=== PATIENT | female | born 1965 | race Caucasian/White ===

== ENCOUNTER 2019-06-11 13:33 | Inpatient (IN) | payer SELFPAY ==
[2019-06-11] MEDS ORDERED: Sodium Chloride 0.9% 10 ML Syringe FLUSH PRN (13:46)
[2019-06-11] MEDS ORDERED: Lactated Ringers 1,000 ML IV SCH (14:00)
[2019-06-11] MEDS ORDERED: Lactated Ringers 1,000 ML IV ONE ×2 (14:33→15:32)
[2019-06-11] MEDS ORDERED: Insulin Regular, Human 100 Units/ML 3 ML Vial IV ONE (16:04)
--- NOTE | 2019-06-11 16:17 | PCM.HP.2 ---
H&P History of Present Illness - General Date of Service: 06/11/19 - History of Present Illness Initial Comments - Free Text/Narative: 2 weeks ago stopped taking her medications, no specific reason. 1 week ago started feeling more and more fatigue, malaise, thirsty, significant weakness Denies nasal congestion, flue like symptoms, abdominal pain, diarrhea, nausea, vomiting. Earlier this week she did have some nausea, decreased appetite with a couple of episodes of vomiting. Today patient was up around 6AM but went back to bed, woke her up around 11AM and she was significantly lethargic, she eventually made it to the clinic where she was sent here - Related Data Allergies/Adverse Reactions: Allergies Allergy/AdvReac Type Severity Reaction Status Date / Time No Known Allergies Allergy Verified 06/11/19 13:47 Home Medications: Home Meds Aspirin 81 mg PO DAILY 06/11/19 [History] Cholecalciferol (Vitamin D3) [Vitamin D3] 1,000 unit PO DAILY 06/11/19 [History] Cranberry Fruit Concentrate [Cranberry] 450 mg PO DAILY 06/11/19 [History] Liraglutide [Victoza 3-Jesus] 0 mg SQ DAILY 06/11/19 [History] Lisinopril 30 mg PO DAILY 06/11/19 [History] Phenazopyridine HCl [Azo Urinary Pain Relief] 97.5 mg PO DAILY PRN 06/11/19 [ History] Vit C/E/Zn/Coppr/Lutein/Zeaxan [Preservision Areds 2 Softgel] 1 each PO DAILY [History] atorvaSTATin [Lipitor] 10 mg PO DAILY 06/11/19 [History] metFORMIN [Glucophage] 1,000 mg PO BIDMEALS 06/11/19 [History] Past Medical History HEENT History: Reports: None Cardiovascular History: Reports: High Cholesterol, Hypertension Respiratory History: Reports: None Gastrointestinal History: Reports: None 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 Musculoskeletal History: Reports: None Neurological History: Reports: None Psychiatric History: Reports: None Endocrine/Metabolic History: Reports: Diabetes, Type II, Obesity/BMI 30+ Hematologic History: Reports: None Immunologic History: Reports: None Oncologic (Cancer) History: Reports: None Dermatologic History: Reports: None - Infectious Disease History Infectious Disease History: Reports: None - Past Surgical History Head Surgeries/Procedures: Reports: None Female Surgical History: Reports: Hysterectomy Social & Family History - Tobacco Use Smoking Status *Q: Never Smoker - Caffeine Use Caffeine Use: Reports: Soda - Recreational Drug Use Recreational Drug Use: No H&P Review of Systems - Review of Systems: Review Of Systems: See Below General: Reports: Weakness, Fatigue. Denies: Fever, Chills, Malaise, Night Sweats, Diaphoresis, Decreased Appetite HEENT: Denies: Dysphasia, Ear Pain, Eye Pain, Headaches, Post Nasal Drip, Sinus Congestion, Sore Throat Pulmonary: Denies: Shortness of Breath, Wheezing, Pleuritic Chest Pain, Cough, Sputum, Hemoptysis Cardiovascular: Reports: Dyspnea on Exertion. Denies: Chest Pain, Palpitations , Orthopnea, PND, Edema, Lightheadedness, Syncope, Claudication Gastrointestinal: Reports: Nausea. Denies: Abdominal Pain, Anorexia, Black Stool, Bloody Stool, Constipation, Diarrhea, Decreased Appetite, Difficulty Swallowing, Distension, Flatus, Hematemesis, Hematochezia Genitourinary: Reports: Frequency, Urgency, Incontinence. Denies: Dysuria, Burning, Pain, Hematuria, Retention Skin: Denies: Cyanosis, Jaundice, Mottled, Pallor, Rash Psychiatric: Reports: Confusion. Denies: Depression, Mood Lability, Anxiety, Agitation Neurological: Reports: Confusion. Denies: Dizziness, Headache, Numbness, Paresthesia Exam - Exam Exam: See Below - Vital Signs Vital Signs: Last Vital Signs Temp 36.1 C 06/11/19 13:44 Pulse 96 06/11/19 13:44 Resp 24 H 06/11/19 13:44 BP 143/115 H 06/11/19 13:44 Pulse Ox 98 06/11/19 13:44 Weight: 172.365 kg - Exam General: Mild Distress, Lethargic HEENT: Conjunctiva Clear, EACs Clear, Other (Oral mucosa is dry withou lesions) Neck: Supple Lungs: Clear to Auscultation, Normal Respiratory Effort Cardiovascular: Regular Rate, Regular Rhythm. No: Diastolic Murmur, Rubs, Gallop/S3, Gallop/S4 GI/Abdominal Exam: Normal Bowel Sounds, Soft. No: Guarding, Rebound, Tender Back Exam: Normal Inspection. No: CVA Tenderness (L), CVA Tenderness (R) Extremities: Normal Inspection, No Pedal Edema - Patient Data Lab Results Last 24 hrs: Laboratory Results - last 24 hr 06/11/19 06/11/19 06/11/19 Range/Units 13:55 13:55 13:55 WBC 16.95 H (3.98-10.04) K/mm3 RBC 5.85 H (3.98-5.22) M/mm3 Hgb 16.7 H (11.2-15.7) gm/dl Hct 48.7 H (34.1-44.9) % MCV 83.2 D (79.4-94.8) fl MCH 28.5 (25.6-32.2) pg MCHC 34.3 (32.2-35.5) g/dl RDW Std Deviation 40.7 (36.4-46.3) fL Plt Count 292 (182-369) K/mm3 MPV 10.2 (9.4-12.3) fl Neut % (Auto) 83.3 H (34.0-71.1) % Lymph % (Auto) 4.7 L (19.3-51.7) % [place] % (Auto) 9.7 (4.7-12.5) % Eos % (Auto) 0 L (0.7-5.8) Baso % (Auto) 0.4 (0.1-1.2) % Neut # (Auto) 14.12 H (1.56-6.13) K/mm3 Lymph # (Auto) 0.80 L (1.18-3.74) K/mm3 [place] # (Auto) 1.65 H (0.24-0.36) K/mm3 Eos # (Auto) 0.00 L (0.04-0.36) K/mm3 Baso # (Auto) 0.06 (0.01-0.08) K/mm3 Manual Slide Review Abnormal smear VBG pH (7.30-7.40) Sodium 122 L D (136-145) mEq/L Potassium 4.9 (3.5-5.1) mEq/L Chloride 86 L D (98-107) mEq/L Carbon Dioxide 13 L D (21-32) mEq/L Anion Gap 27.9 H (5-15) BUN 30 H (7-18) mg/dL Creatinine 1.2 H (0.55-1.02) mg/dL Est Cr Clr Drug Dosing 50.75 mL/min Estimated GFR (MDRD) 47 (>60) mL/min BUN/Creatinine Ratio 25.0 H (14-18) Glucose 730 H* (74-106) mg/dL Serum Osmolality 330 H (280-300) mosm/kg Lactic Acid (0.4-2.0) mmol/L Calcium 8.8 (8.5-10.1) mg/dL Total Bilirubin 0.7 (0.2-1.0) mg/dL AST 5 L (15-37) U/L ALT 13 L (14-59) U/L Alkaline Phosphatase 167 H (46-116) U/L Total Protein 8.3 H (6.4-8.2) g/dl Albumin 3.0 L (3.4-5.0) g/dl Globulin 5.3 gm/dL Albumin/Globulin Ratio 0.6 L (1-2) Ketones 1.24 (0.0-0.3) mM 06/11/19 06/11/19 Range/Units 14:47 15:28 WBC (3.98-10.04) K/mm3 RBC (3.98-5.22) M/mm3 Hgb (11.2-15.7) gm/dl Hct (34.1-44.9) % MCV (79.4-94.8) fl MCH (25.6-32.2) pg MCHC (32.2-35.5) g/dl RDW Std Deviation (36.4-46.3) fL Plt Count (182-369) K/mm3 MPV (9.4-12.3) fl Neut % (Auto) (34.0-71.1) % Lymph % (Auto) (19.3-51.7) % [place] % (Auto) (4.7-12.5) % Eos % (Auto) (0.7-5.8) Baso % (Auto) (0.1-1.2) % Neut # (Auto) (1.56-6.13) K/mm3 Lymph # (Auto) (1.18-3.74) K/mm3 [place] # (Auto) (0.24-0.36) K/mm3 Eos # (Auto) (0.04-0.36) K/mm3 Baso # (Auto) (0.01-0.08) K/mm3 Manual Slide Review VBG pH 7.26 L (7.30-7.40) Sodium (136-145) mEq/L Potassium (3.5-5.1) mEq/L Chloride (98-107) mEq/L Carbon Dioxide (21-32) mEq/L Anion Gap (5-15) BUN (7-18) mg/dL Creatinine (0.55-1.02) mg/dL Est Cr Clr Drug Dosing mL/min Estimated GFR (MDRD) (>60) mL/min BUN/Creatinine Ratio (14-18) Glucose (74-106) mg/dL Serum Osmolality (280-300) mosm/kg Lactic Acid 2.2 H (0.4-2.0) mmol/L Calcium (8.5-10.1) mg/dL Total Bilirubin (0.2-1.0) mg/dL AST (15-37) U/L ALT (14-59) U/L Alkaline Phosphatase (46-116) U/L Total Protein (6.4-8.2) g/dl Albumin (3.4-5.0) g/dl Globulin gm/dL Albumin/Globulin Ratio (1-2) Ketones (0.0-0.3) mM Result Diagrams: 06/11/19 13:55 06/11/19 20:30 - Problem List (1) Hyperosmolar non-ketotic state in patient with type 2 diabetes mellitus SNOMED Code(s): 295262491, 339992433 ICD Code: E11.00 - TYPE 2 DIAB W HYPROSM W/O NONKET HYPRGLY-HYPROS COMA ( [facility]) Status: Acute Current Visit: Yes (2) Hypochloremia SNOMED Code(s): 86958351 ICD Code: E87.8 - OTH DISORDERS OF ELECTROLYTE AND FLUID BALANCE, NEC Status: Acute Current Visit: Yes (3) Hypoalbuminemia SNOMED Code(s): 544808580 ICD Code: E88.09 - OTH DISORDERS OF PLASMA-PROTEIN METABOLISM, NEC Status: Acute Current Visit: Yes (4) Acute kidney failure SNOMED Code(s): 72035417 ICD Code: N17.9 - ACUTE KIDNEY FAILURE, UNSPECIFIED Status: Acute Current Visit: Yes (5) Lactic acidosis SNOMED Code(s): 71298895 ICD Code: E87.2 - ACIDOSIS Status: Acute Current Visit: Yes (6) Hypomagnesemia SNOMED Code(s): 347672115 ICD Code: E83.42 - HYPOMAGNESEMIA Status: Acute Current Visit: Yes (7) High anion gap metabolic acidosis SNOMED Code(s): 26352922 ICD Code: E87.2 - ACIDOSIS Status: Acute Current Visit: Yes (8) Ketonemia SNOMED Code(s): 030424265 ICD Code: R79.89 - OTHER SPECIFIED ABNORMAL FINDINGS OF BLOOD CHEMISTRY Status: Acute Current Visit: Yes (9) Morbid obesity SNOMED Code(s): 163829185 ICD Code: E66.01 - MORBID (SEVERE) OBESITY DUE TO EXCESS CALORIES Status: Acute Current Visit: Yes (10) Hypophosphatemia SNOMED Code(s): 3755045 ICD Code: E83.39 - OTHER DISORDERS OF PHOSPHORUS METABOLISM Status: Acute Current Visit: Yes (11) Diabetic ketoacidosis SNOMED Code(s): 150662875, 135927097 ICD Code: E11.10 - TYPE 2 DIABETES MELLITUS WITH KETOACIDOSIS WITHOUT COMA Status: Acute Current Visit: Yes Qualifiers: Diabetes mellitus type: type 2 Diabetes mellitus complication detail: without coma Qualified Code(s): E11.10 - Type 2 diabetes mellitus with ketoacidosis without coma (12) Hyponatremia SNOMED Code(s): 91032786 ICD Code: E87.1 - HYPO-OSMOLALITY AND HYPONATREMIA Status: Acute Current Visit: Yes (13) Hypertension SNOMED Code(s): 52734542 ICD Code: I10 - ESSENTIAL (PRIMARY) HYPERTENSION Status: Acute Current Visit: Yes (14) Volume depletion SNOMED Code(s): 78389161 ICD Code: E86.9 - VOLUME DEPLETION, UNSPECIFIED Status: Acute Current Visit: Yes (15) Diabetes mellitus SNOMED Code(s): 06289115 ICD Code: E11.9 - TYPE 2 DIABETES MELLITUS WITHOUT COMPLICATIONS Status: Acute Current Visit: Yes (16) Economic circumstance affecting care SNOMED Code(s): 093455447 ICD Code: Z59.9 - PROBLEM RELATED TO HOUSING AND ECONOMIC CIRCUMSTANCES, UNSP Status: Acute Current Visit: Yes Problem List Initiated/Reviewed/Updated: Yes Assessment/Plan Comment:: Diabetic ketoacidosis Hyperosmolar state Uncontrolled diabetes mellitus, unknown HbA1c Multifactorial anion gap metabolic acidosis Respiratory alkalosis Anion gap 28 on admission Serum osmolarity 330 Lactic acid 2.2 Unknown HbA1c likely precipitated by UTI and missed insulin doses PLAN - BMP + Mg + Pi every 4 hours - Ketones every 8 hours - Lactic acid every 4 hours - Fluid resuscitation with LR - Insulin drip until anion gap is closed - Start D10 once glucose <200 - Accuchecks q1h - Electrolytes replacements as per protocol - HbA1c measurement - 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 - NPO until gap is closed Acute vs acute on chronic kidney injury Multiple metabolic derangements Hypophosphatemia + Hypochloremia + Hyponatremia Unknown baseline GFR GFR on admission 47 PLAN - Continue IV fluids - Monitor urine output - Renally dosed medications - Avoid nephrotoxic meds as much as possible - Repeat chemistry with DKA protocol Urinary tract infection Increased frequency + incontinence + suprapubic tenderness Positive UA on admission PLAN - Urine culture - Ciprofloxacin Hypertension BP on admission 143/115 Unknown home Meds PLAN - Reconcile Meds once list available - Hydralazine 10mg IV for BP >180/100 Hypoalbuminemia - 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 Morbid obesity, BMI 59 Discuss importance of diet and lifestyle modifications Dietary consult PROPHYLAXIS DVT- Lovenox GI-not indicated CODE STATUS: FULL CODE DISPOSITION: Patient will be admitted to the ICU for DKA protocol,PT and OT evaluation, case management and social worker health services consult in place for discharge planning. - Mortality Measure Prognosis:: Good
[2019-06-11] MEDS ORDERED: Sodium Bicarbonate 8.4% 50 MEQ/50 ML Syringe IVPUSH PRN (16:25)
[2019-06-11] MEDS ORDERED: Magnesium Sulfate/Water 4 GM in Premix Bag 1 BAG IV PRN (16:25)
[2019-06-11] MEDS ORDERED: Potassium Phosphates 15 MMOLE in Sodium Chloride 0.9% 100 ML IV PRN (16:25)
[2019-06-11] MEDS ORDERED: Sodium Chloride 0.9% 1,000 ML IV SCH (16:30)
[2019-06-11] MEDS ORDERED: Dextrose 10% in Water 1,000 ML IV SCH (16:30)
--- NOTE | 2019-06-11 16:36 | EDM.PDOC ---
ED HPI GENERAL MEDICAL PROBLEM - General Chief Complaint: Diabetic Complaint Stated Complaint: DIABETIC COMPLAINT Time Seen by Provider: 06/11/19 13:42 Source of Information: Reports: Patient, Family, Provider History Limitations: Reports: No Limitations - History of Present Illness INITIAL COMMENTS - FREE TEXT/NARRATIVE: The patient presents by private vehicle from the clinic. Cynthia Hahn sent her up for possible DKA. Two weeks ago the patient stopped taking her diabetic medications. She was on oral meds. She wanted to try to do this on her own. She has been weak, thirsty and urinating a lot. She has no fever, chills, cough , congestion, runny nose, abdominal pain, or vomiting. She did have some nausea. She has never been in DKA before. Bedside glucose was >400. Onset: Gradual Duration: Day(s): Severity: Moderate Improves with: Reports: None Worsens with: Reports: None Associated Symptoms: Reports: Nausea/Vomiting. Denies: Chest Pain, Cough, Fever /Chills, Headaches, Shortness of Breath - Related Data Allergies Allergy/AdvReac Type Severity Reaction Status Date / Time No Known Allergies Allergy Verified 06/11/19 13:47 Home Meds: Home Meds Aspirin 81 mg PO DAILY 06/11/19 [History] Cholecalciferol (Vitamin D3) [Vitamin D3] 1,000 unit PO DAILY 06/11/19 [History] Cranberry Fruit Concentrate [Cranberry] 450 mg PO DAILY 06/11/19 [History] Liraglutide [Victoza 3-Jesus] 0 mg SQ DAILY 06/11/19 [History] Lisinopril 30 mg PO DAILY 06/11/19 [History] Phenazopyridine HCl [Azo Urinary Pain Relief] 97.5 mg PO DAILY PRN 06/11/19 [ History] Vit C/E/Zn/Coppr/Lutein/Zeaxan [Preservision Areds 2 Softgel] 1 each PO DAILY [History] atorvaSTATin [Lipitor] 10 mg PO DAILY 06/11/19 [History] metFORMIN [Glucophage] 1,000 mg PO BIDMEALS 06/11/19 [History] Past Medical History HEENT History: Reports: None Cardiovascular History: Reports: High Cholesterol, Hypertension Respiratory History: Reports: None Gastrointestinal History: Reports: None 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 Musculoskeletal History: Reports: None Neurological History: Reports: None Psychiatric History: Reports: None Endocrine/Metabolic History: Reports: Diabetes, Type II, Obesity/BMI 30+ Hematologic History: Reports: None Immunologic History: Reports: None Oncologic (Cancer) History: Reports: None Dermatologic History: Reports: None - Infectious Disease History Infectious Disease History: Reports: None - Past Surgical History Head Surgeries/Procedures: Reports: None Female Surgical History: Reports: Hysterectomy Social & Family History - Tobacco Use Smoking Status *Q: Never Smoker - Caffeine Use Caffeine Use: Reports: Soda - Recreational Drug Use Recreational Drug Use: No ED ROS GENERAL - Review of Systems Review Of Systems: See Below Constitutional: Reports: Malaise, Weakness, Fatigue HEENT: Reports: No Symptoms Respiratory: Reports: No Symptoms Cardiovascular: Reports: No Symptoms Endocrine: Reports: Fatigue, Polydypsia GI/Abdominal: Reports: Nausea. Denies: Abdominal Pain, Vomiting : Reports: No Symptoms Musculoskeletal: Reports: No Symptoms ED EXAM GENERAL NO PERIP PULSE - Physical Exam Exam: See Below Exam Limited By: No Limitations General Appearance: Alert, No Apparent Distress Ears: Normal External Exam Nose: Normal Inspection Throat/Mouth: Other (Dry mucus membraines) Head: Atraumatic, Normocephalic Neck: Normal Inspection, Supple, Non-Tender Respiratory/Chest: No Respiratory Distress, Lungs Clear, Normal Breath Sounds Cardiovascular: Normal Peripheral Pulses, Regular Rate, Rhythm, No Edema GI/Abdominal: Soft, Non-Tender, No Organomegaly, No Mass Back Exam: Normal Inspection Extremities: Normal Inspection Course - Vital Signs Last Recorded V/S: Last Vital Signs Temp 96.9 F 06/11/19 13:44 Pulse 96 06/11/19 13:44 Resp 24 H 06/11/19 13:44 BP 143/115 H 06/11/19 13:44 Pulse Ox 98 06/11/19 13:44 - Orders/Labs/Meds Orders: Active Orders 24 hr Category Date Time Status Cardiac Monitoring [RC] . DIRECTED Care 06/11/19 13:46 Active Peripheral IV Care [RC] . DIRECTED Care 06/11/19 13:46 Active Insulin Regular, Human [HumuLIN R] 100 unit Med 06/11/19 16:15 Active Sodium Chloride 0.9% [Normal Saline] 99 ml IV TITRATE Lactated Ringers [Ringers, Lactated] 1,000 ml Med 06/11/19 14:00 Active IV .BOLUS Lactated Ringers [Ringers, Lactated] 1,000 ml Med 06/11/19 15:32 Active IV .BOLUS Sodium Chloride 0.9% [Saline Flush] Med 06/11/19 13:46 Active 10 ml FLUSH ASDIRECTED PRN Peripheral IV Insertion Adult [OM.PC] Stat Oth 06/11/19 13:46 Ordered Medication Orders Lactated Ringer's (Ringers, Lactated) 1,000 mls @ 500 mls/hr IV .BOLUS MICHELE Last Admin: 06/11/19 13:59 Dose: 500 mls/hr Lactated Ringer's (Ringers, Lactated) 1,000 mls @ 1,000 mls/hr IV .BOLUS ONE Stop: 06/11/19 16:31 Last Admin: 06/11/19 15:41 Dose: 1,000 mls/hr Insulin Human Regular 100 unit (/ Sodium Chloride) 100 mls @ 17.23 mls/hr IV TITRATE MICHELE; Protocol Sodium Chloride (Saline Flush) 10 ml FLUSH ASDIRECTED PRN PRN Reason: Keep Vein Open Last Admin: 06/11/19 13:59 Dose: 10 ml Labs: Laboratory Tests 06/11/19 06/11/19 06/11/19 Range/Units 13:55 13:55 13:55 WBC 16.95 H (3.98-10.04) K/mm3 RBC 5.85 H (3.98-5.22) M/mm3 Hgb 16.7 H (11.2-15.7) gm/dl Hct 48.7 H (34.1-44.9) % MCV 83.2 D (79.4-94.8) fl MCH 28.5 (25.6-32.2) pg MCHC 34.3 (32.2-35.5) g/dl RDW Std Deviation 40.7 (36.4-46.3) fL Plt Count 292 (182-369) K/mm3 MPV 10.2 (9.4-12.3) fl Neut % (Auto) 83.3 H (34.0-71.1) % Lymph % (Auto) 4.7 L (19.3-51.7) % [place] % (Auto) 9.7 (4.7-12.5) % Eos % (Auto) 0 L (0.7-5.8) Baso % (Auto) 0.4 (0.1-1.2) % Neut # (Auto) 14.12 H (1.56-6.13) K/mm3 Lymph # (Auto) 0.80 L (1.18-3.74) K/mm3 [place] # (Auto) 1.65 H (0.24-0.36) K/mm3 Eos # (Auto) 0.00 L (0.04-0.36) K/mm3 Baso # (Auto) 0.06 (0.01-0.08) K/mm3 Manual Slide Review Abnormal smear VBG pH (7.30-7.40) Sodium 122 L D (136-145) mEq/L Potassium 4.9 (3.5-5.1) mEq/L Chloride 86 L D (98-107) mEq/L Carbon Dioxide 13 L D (21-32) mEq/L Anion Gap 27.9 H (5-15) BUN 30 H (7-18) mg/dL Creatinine 1.2 H (0.55-1.02) mg/dL Est Cr Clr Drug Dosing 50.75 mL/min Estimated GFR (MDRD) 47 (>60) mL/min BUN/Creatinine Ratio 25.0 H (14-18) Glucose 730 H* (74-106) mg/dL Serum Osmolality 330 H (280-300) mosm/kg Lactic Acid (0.4-2.0) mmol/L Calcium 8.8 (8.5-10.1) mg/dL Total Bilirubin 0.7 (0.2-1.0) mg/dL AST 5 L (15-37) U/L ALT 13 L (14-59) U/L Alkaline Phosphatase 167 H (46-116) U/L Total Protein 8.3 H (6.4-8.2) g/dl Albumin 3.0 L (3.4-5.0) g/dl Globulin 5.3 gm/dL Albumin/Globulin Ratio 0.6 L (1-2) Ketones 1.24 (0.0-0.3) mM 06/11/19 06/11/19 Range/Units 14:47 15:28 WBC (3.98-10.04) K/mm3 RBC (3.98-5.22) M/mm3 Hgb (11.2-15.7) gm/dl Hct (34.1-44.9) % MCV (79.4-94.8) fl MCH (25.6-32.2) pg MCHC (32.2-35.5) g/dl RDW Std Deviation (36.4-46.3) fL Plt Count (182-369) K/mm3 MPV (9.4-12.3) fl Neut % (Auto) (34.0-71.1) % Lymph % (Auto) (19.3-51.7) % [place] % (Auto) (4.7-12.5) % Eos % (Auto) (0.7-5.8) Baso % (Auto) (0.1-1.2) % Neut # (Auto) (1.56-6.13) K/mm3 Lymph # (Auto) (1.18-3.74) K/mm3 [place] # (Auto) (0.24-0.36) K/mm3 Eos # (Auto) (0.04-0.36) K/mm3 Baso # (Auto) (0.01-0.08) K/mm3 Manual Slide Review VBG pH 7.26 L (7.30-7.40) Sodium (136-145) mEq/L Potassium (3.5-5.1) mEq/L Chloride (98-107) mEq/L Carbon Dioxide (21-32) mEq/L Anion Gap (5-15) BUN (7-18) mg/dL Creatinine (0.55-1.02) mg/dL Est Cr Clr Drug Dosing mL/min Estimated GFR (MDRD) (>60) mL/min BUN/Creatinine Ratio (14-18) Glucose (74-106) mg/dL Serum Osmolality (280-300) mosm/kg Lactic Acid 2.2 H (0.4-2.0) mmol/L Calcium (8.5-10.1) mg/dL Total Bilirubin (0.2-1.0) mg/dL AST (15-37) U/L ALT (14-59) U/L Alkaline Phosphatase (46-116) U/L Total Protein (6.4-8.2) g/dl Albumin (3.4-5.0) g/dl Globulin gm/dL Albumin/Globulin Ratio (1-2) Ketones (0.0-0.3) mM Meds: Medications Generic Name Dose Route Start Last Admin Trade Name Ladonna PRN Reason Stop Dose Admin Lactated Ringer's 1,000 mls @ 500 mls/hr 06/11/19 14:00 06/11/19 13:59 Ringers, Lactated IV 500 mls/hr .BOLUS MICHELE Administration Lactated Ringer's 1,000 mls @ 1,000 mls/hr 06/11/19 15:32 06/11/19 15:41 Ringers, Lactated IV 06/11/19 16:31 1,000 mls/hr .BOLUS ONE Administration Insulin Human Regular 100 unit 100 mls @ 17.23 mls/hr 06/11/19 16:15 / Sodium Chloride IV TITRATE MICHELE Protocol 0.1 UNITS/KG/HR Sodium Chloride 10 ml 06/11/19 13:46 06/11/19 13:59 Saline Flush FLUSH 10 ml ASDIRECTED PRN Administration Keep Vein Open Discontinued Medications Generic Name Dose Route Start Last Admin Trade Name Ladonna PRN Reason Stop Dose Admin Lactated Ringer's 1,000 mls @ 1,000 mls/hr 06/11/19 14:33 06/11/19 15:10 Ringers, Lactated IV 06/11/19 15:32 1,000 mls/hr .BOLUS ONE Administration Insulin Human Regular 10 unit 06/11/19 16:04 Humulin R IV 06/11/19 16:05 ONETIME ONE - Re-Assessments/Exams Free Text/Narrative Re-Assessment/Exam: 06/11/19 16:36 I ordered an IV LR bolus and labs. 06/11/19 16:38 Her WBC is elevated at 16.95. Her Hgb is elevated at 16.7. Her pH is low at 7.26. Her Na is low at 122. Her K is 4.9. Her anion gap is elevated at 27.9. Her creatinine was elevated at 1.2. Her glucose is 730. Her serum osmolality is 330. Her lactic acid is 2.2. Her alk phos is elevated at 167. Her ketones are elevated at 1.24. It appears she is in DKA. I ordered another 2L of LR. I have also ordered an insulin bolus of 10 units and a drip at 0.1units per hour. I feel she needs to be admitted. I called Dr Alegria and she agreed to the admission. Departure - Departure Time of Disposition: 16:45 Disposition: Admitted As Inpatient 67 Condition: Serious Clinical Impression: Hyponatremia, Dehydration Diabetic ketoacidosis Qualifiers: Diabetes mellitus type: type 2 Diabetes mellitus complication detail: without coma Qualified Code(s): E11.10 - Type 2 diabetes mellitus with ketoacidosis without coma - Discharge Information Referrals: PCP,None [Primary Care Provider] - - My Orders Last 24 Hours: My Active Orders 06/11/19 13:46 Cardiac Monitoring [RC] . DIRECTED Peripheral IV Care [RC] . DIRECTED Sodium Chloride 0.9% [Saline Flush] 10 ml FLUSH ASDIRECTED PRN Peripheral IV Insertion Adult [OM.PC] Stat 06/11/19 14:00 Lactated Ringers [Ringers, Lactated] 1,000 ml IV .BOLUS 06/11/19 15:32 Lactated Ringers [Ringers, Lactated] 1,000 ml IV .BOLUS 06/11/19 16:15 Insulin Regular, Human [HumuLIN R] 100 unit Sodium Chloride 0.9% [Normal Saline] 99 ml IV TITRATE - Assessment/Plan Last 24 Hours: My Active Orders 06/11/19 13:46 Cardiac Monitoring [RC] . DIRECTED Peripheral IV Care [RC] . DIRECTED Sodium Chloride 0.9% [Saline Flush] 10 ml FLUSH ASDIRECTED PRN Peripheral IV Insertion Adult [OM.PC] Stat 06/11/19 14:00 Lactated Ringers [Ringers, Lactated] 1,000 ml IV .BOLUS 06/11/19 15:32 Lactated Ringers [Ringers, Lactated] 1,000 ml IV .BOLUS 06/11/19 16:15 Insulin Regular, Human [HumuLIN R] 100 unit Sodium Chloride 0.9% [Normal Saline] 99 ml IV TITRATE
[2019-06-11] MEDS ORDERED: Dextrose 10% in Water 1,000 ML ONE (17:19)
[2019-06-11 17:44] LABS: HEMOGLOBIN A1C 9.1 % (4.50-6.20)
[2019-06-11] MEDS: Lactated Ringers 1,000 ML IV SCH ×3 (19:19→22:06)
--- NOTE | 2019-06-11 19:24 | CR ---
Chest: Portable view of the chest was obtained. Comparison: No prior chest x-ray. Nodular density is noted within the left upper lung measuring approximately 1.2 cm. Poor inspiratory study is noted. Lungs show no definite acute parenchymal change. Bony structures are grossly intact. Probable left jugular line is noted with tip lying within the right atrium. Impression: 1. Left upper lung nodule. Nonemergent chest CT could be considered to further evaluate. 2. Poor inspiratory effort. 3. Probable jugular line with tip lying within the right atria. 4. No definite acute parenchymal change is seen. Diagnostic code #9
--- NOTE | 2019-06-11 20:57 | CR ---
Chest: Portable view of the chest was obtained. Comparison: Prior chest x-ray performed earlier on the same day (6:55 PM) Slightly better inspiratory study is seen. Nodule remains within the left mid chest. Lungs are clear. Heart size and mediastinum are normal. Left jugular line is noted. Tip appears withdrawn and is difficult to see but appears to be within the superior vena cava. Bony structures are grossly intact. Impression: 1. Nodule persists. Nonemergent chest CT again recommended. 2. Better inspiratory study noted on current exam. 3. Left jugular line appears withdrawn with tip difficult to see but felt to be within the superior vena cava. Diagnostic code #9
[2019-06-12] MEDS: Lactated Ringers 1,000 ML IV SCH ×2 (01:04→05:52)
[2019-06-12] MEDS ORDERED: Potassium Phosphates 15 MMOLE in Sodium Chloride 0.9% 250 ML IV ONE (05:15)
[2019-06-12] MEDS ORDERED: 50% Dextrose in Water 50 ML Syringe IVPUSH ONE (08:18)
[2019-06-12] MEDS ORDERED: 50% Dextrose in Water 50 ML Syringe ONE (08:19)
[2019-06-12] MEDS ORDERED: Aspirin 81 MG Tab.Chew PO ONE (08:24)
[2019-06-12] MEDS ORDERED: Aspirin 81 MG Tab.Chew ONE ×2 (08:24→08:25)
[2019-06-12] MEDS ORDERED: Rosuvastatin 10 MG Tab PO ONE (08:26)
[2019-06-12] MEDS: Enoxaparin 40 MG/0.4 ML Syringe SUBCUT SCH ×2 (08:44→08:46)
[2019-06-12] MEDS ORDERED: Iopamidol 755 Mg/ML 100 ML Bottle IVPUSH ONE (08:47)
[2019-06-12] MEDS ORDERED: Sodium Chloride 0.9% 10 ML Syringe FLUSH PRN (08:47)
[2019-06-12] MEDS ORDERED: Sodium Chloride 0.9% 100 ML IV SCH (09:00)
--- NOTE | 2019-06-12 10:51 | PCM.DCSUM1 ---
Discharge Summary - Hospital Course HPI Initial Comments: This is a 54 year old female with past medical history of diabetes and hypertension 2 weeks ago stopped taking her medications, no specific reason. 1 week ago started feeling more and more fatigue, malaise, thirsty, significant weakness Denies nasal congestion, flue like symptoms, abdominal pain, diarrhea, nausea, vomiting. Earlier this week she did have some nausea, decreased appetite with a couple of episodes of vomiting. Today patient was up around 6AM but went back to bed, woke her up around 11AM and she was significantly lethargic, she eventually made it to the clinic where she was sent here Once in the ED she was found to have an anion gap metabolic acidosis, hyperosmolar state, respiratory alkalosis, acute kidney injury, multiple electrolyte abnormalities, positive UA and hypoalbuminemia. She was admitted to the ICU for insulin infusion and DKA protocol which continued throughout the night. Today at 8:05AM patient was found to have sudden onset weakness of RUE. Glucose at the time was 209, she was given D50 and orange juice, repeat glucose of 253 without improvement of symptoms. Stroke code was called and patient was taken to CT. CTA head reported to have a subacute medial left lobe CVA. Case was discussed with neurologist in [place] and ER MD who accepted transfer. Patient left at 11:00AM via ground ambulance. On insulin drip at 2u and LR at 150ml/hr Diagnosis: Stroke: Yes Modified [place] Scale: Mod.Sev.Disability ;Unable to Walk/Attend Bodily Needs W/ O Assistance Modified [place] Scale Score: 4 - Discharge Data Discharge Date: 06/12/19 Discharge Disposition: DC/Tfer to Acute Hospital 02 Condition: Good - Referral to Home Health Primary Care Physician: PCP None - Discharge Diagnosis/Problem(s) (1) Stroke-like symptoms SNOMED Code(s): 113653365 ICD Code: R29.90 - UNSPECIFIED SYMPTOMS AND SIGNS INVOLVING THE NERVOUS SYSTEM Status: Acute Priority: High Current Visit: Yes (2) Stroke, acute, embolic SNOMED Code(s): 703302098, 423234012 ICD Code: I63.9 - CEREBRAL INFARCTION, UNSPECIFIED Status: Acute Priority : High Current Visit: Yes (3) Hyperosmolar non-ketotic state in patient with type 2 diabetes mellitus SNOMED Code(s): 773560987, 229889767 ICD Code: E11.00 - TYPE 2 DIAB W HYPROSM W/O NONKET HYPRGLY-HYPROS COMA ( [facility]) Status: Acute Current Visit: Yes (4) Hypochloremia SNOMED Code(s): 21858771 ICD Code: E87.8 - OTH DISORDERS OF ELECTROLYTE AND FLUID BALANCE, NEC Status: Acute Current Visit: Yes (5) Hypoalbuminemia SNOMED Code(s): 496546838 ICD Code: E88.09 - OT DISORDERS OF PLASMA-PROTEIN METABOLISM, NEC Status: Acute Current Visit: Yes (6) Acute kidney failure SNOMED Code(s): 46986156 ICD Code: N17.9 - ACUTE KIDNEY FAILURE, UNSPECIFIED Status: Acute Current Visit: Yes (7) Lactic acidosis SNOMED Code(s): 83445495 ICD Code: E87.2 - ACIDOSIS Status: Acute Current Visit: Yes (8) Hypomagnesemia SNOMED Code(s): 557878237 ICD Code: E83.42 - HYPOMAGNESEMIA Status: Acute Current Visit: Yes (9) High anion gap metabolic acidosis SNOMED Code(s): 96092461 ICD Code: E87.2 - ACIDOSIS Status: Acute Current Visit: Yes (10) Ketonemia SNOMED Code(s): 446907217 ICD Code: R79.89 - OTHER SPECIFIED ABNORMAL FINDINGS OF BLOOD CHEMISTRY Status: Acute Current Visit: Yes (11) Morbid obesity SNOMED Code(s): 342589110 ICD Code: E66.01 - MORBID (SEVERE) OBESITY DUE TO EXCESS CALORIES Status: Acute Current Visit: Yes (12) Hypophosphatemia SNOMED Code(s): 5819729 ICD Code: E83.39 - OTHER DISORDERS OF PHOSPHORUS METABOLISM Status: Acute Current Visit: Yes (13) Diabetic ketoacidosis SNOMED Code(s): 974724502, 574805154 ICD Code: E11.10 - TYPE 2 DIABETES MELLITUS WITH KETOACIDOSIS WITHOUT COMA Status: Acute Current Visit: Yes Qualifiers: Diabetes mellitus type: type 2 Diabetes mellitus complication detail: without coma Qualified Code(s): E11.10 - Type 2 diabetes mellitus with ketoacidosis without coma (14) Hyponatremia SNOMED Code(s): 75944140 ICD Code: E87.1 - HYPO-OSMOLALITY AND HYPONATREMIA Status: Acute Current Visit: Yes (15) Hypertension SNOMED Code(s): 30219280 ICD Code: I10 - ESSENTIAL (PRIMARY) HYPERTENSION Status: Acute Current Visit: Yes (16) Volume depletion SNOMED Code(s): 52496048 ICD Code: E86.9 - VOLUME DEPLETION, UNSPECIFIED Status: Acute Current Visit: Yes (17) Diabetes mellitus SNOMED Code(s): 20876530 ICD Code: E11.9 - TYPE 2 DIABETES MELLITUS WITHOUT COMPLICATIONS Status: Acute Current Visit: Yes (18) Economic circumstance affecting care SNOMED Code(s): 544296952 ICD Code: Z59.9 - PROBLEM RELATED TO HOUSING AND ECONOMIC CIRCUMSTANCES, UNSP Status: Acute Current Visit: Yes - Patient Summary/Data Consults: Consultations 06/11/19 16:25 Respiratory Care Assess and Treatment [CONS] Routine - Patient Instructions Diet: NPO Activity: Bedrest - Discharge Plan Home Medications: Home Meds Aspirin 81 mg PO DAILY 06/11/19 [History] Cholecalciferol (Vitamin D3) [Vitamin D3] 1,000 unit PO DAILY 06/11/19 [History] Dextrose 10% in Water 40 ml IV ASDIRECTED bag 06/12/19 [Rx] Enoxaparin [Lovenox] 40 mg SUBCUT DAILY syringe 06/12/19 [Rx] Insulin Regular, Human [HumuLIN R] 100 unit IV TITRATE vial 06/12/19 [Rx] Lactated Ringers [Ringers, Lactated] 150 ml IV ASDIRECTED bag 06/12/19 [Rx] Forms: ED Department Discharge Referrals: PCP,None [Primary Care Provider] - - Discharge Summary/Plan Comment DC Time >30 min.: Yes - General Info Date of Service: 06/12/19 Subjective Update: Slept ok Nursing staff reported RUE weakness - Patient Data Vitals - Most Recent: Last Vital Signs Temp 36.2 C 06/12/19 10:42 Pulse 96 06/11/19 13:44 Resp 18 06/12/19 10:42 BP 125/55 L 06/12/19 10:42 Pulse Ox 99 06/12/19 10:42 Weight - Most Recent: 172.4 kg - Exam General: Reports: Alert, Cooperative, Moderate Distress HEENT: Reports: Pupils Equal, Pupils Reactive Neck: Reports: Supple, Trachea Midline Lungs: Reports: Clear to Auscultation, Normal Respiratory Effort Cardiovascular: Reports: Regular Rate, Regular Rhythm. 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
--- NOTE | 2019-06-12 11:26 | PCM.PRNOTE ---
- Free Text/Narrative Note: CENTRAL LINE PLACEMENT Date: 06/11/19 Time: 19:05 Indication: Intravenous access Attending: Jacqueline Alegria MD A time-out was completed verifying correct patient, procedure, site, positioning , and special equipment if applicable. The patient was placed in a dependent position appropriate for central line placement based on the vein to be cannulated. The patients left neck was prepped and draped in sterile fashion. 1% Lidocaine was used to anesthetize the surrounding skin area. A triple lumen 7-[place] Cordis catheter was introduced into the the internal jugular vein using the Seldinger technique and under ultrasound guidance. The catheter was threaded smoothly over the guide wire and appropriate blood return was obtained. Each lumen of the catheter was evacuated of air and flushed with sterile saline. The catheter was then sutured in place to the skin and a sterile dressing applied. Perfusion to the extremity distal to the point of catheter insertion was checked and found to be adequate. Estimated Blood Loss: 20mL The patient tolerated the procedure well and there were no complications. Unable to confirm position on CXR + ABG's with PaO2 of 99, due to inability to confirm wherther or not catheter was in appropriate location, the catheter was discontinued.
--- NOTE | 2019-06-12 13:42 | CT ---
Head CT Technique: Multiple axial sections through the brain were obtained. Intravenous contrast was not utilized. Comparison: No prior intracranial imaging is available. Findings: Low density is noted within the medial left and posterior frontal region. Difficult to exclude a small subacute infarct. No other abnormal parenchymal densities are seen. No evidence of intracranial hemorrhage. No midline shift or mass effect is seen. Bone window settings were reviewed which show the visualized mastoid sinuses and paranasal sinuses to appear clear. No acute calvarial abnormality is seen. Impression: 1. Possible subacute infarct within the medial left upper posterior frontal region. MRI could be obtained to confirm. 2. No intracranial hemorrhage is seen. No additional abnormality is appreciated on noncontrast head CT exam. Diagnostic code #3 I agree with preliminary report from [facility], finalized on 05/12/19, 10:37 AM Central Time
--- NOTE | 2019-06-12 14:08 | CT ---
CT angiogram of neck Technique: Multiple axial sections through the neck were obtained. Intravenous contrast was utilized. Study performed as a CT angiogram neck protocol. Findings: Nodular densities are seen within both upper lungs suspicious for possible pulmonary metastatic disease. Vertebral arteries are patent. Common carotid arteries, internal carotid arteries and proximal external carotid arteries are patent without focal stenosis or occlusion. No dissection is seen. Impression: 1. No discrete vascular abnormality is appreciated on CT angiogram of the neck. 2. Multiple nodules within both lungs apices suspicious for pulmonary metastatic disease. Chest CT is suggested. Diagnostic code #9 I agree with preliminary report from [facility], finalized on 06/12/19, 11:29 AM Central Time
--- NOTE | 2019-06-12 14:08 | CT ---
CT angiogram of brain Technique: Multiple axial sections through the brain were obtained. Intravenous contrast was utilized. Study performed as a CT angiogram protocol. Multiple MIP images were obtained in multiple projections. Findings: Middle cerebral arteries and anterior cerebral arteries are patent. Posterior cerebral arteries are also patent. Both distal vertebral arteries and basilar artery are patent. Carotid siphon felt to be patent. No focal occlusion or stenosis is appreciated. No discrete aneurysm is appreciated. Impression: 1. No abnormality is appreciated on CT angiogram of the brain which is centered to the [place] of [place]. Diagnostic code #1 I agree with preliminary report from [facility], finalized on 06/12/19, 11:47 AM Central Time
== END 2019-06-12 11:00 | DRG 64 ==
LOC: JD.ED 13:33 → JD.ICU 16:25
PROVIDERS: ADMIT Internal Medicine; ATTEND Internal Medicine
PROC: 02HV33Z Insertion of Infusion Device into Superior Vena Cava, Percutaneous Approach (ICD-10-PCS; principal; 2019-06-11)
PROC: B548ZZA Ultrasonography of Superior Vena Cava, Guidance (ICD-10-PCS; 2019-06-11)
DX: I63.9 Cerebral infarction, unspecified (principal); E11.10 Type 2 diabetes mellitus with ketoacidosis without coma; N17.9 Acute kidney failure, unspecified; E87.2 Acidosis; E87.1 Hypo-osmolality and hyponatremia; E87.3 Alkalosis; E87.0 Hyperosmolality and hypernatremia; N39.0 Urinary tract infection, site not specified; Z68.43 Body mass index [BMI] 50.0-59.9, adult; E83.42 Hypomagnesemia; E87.8 Other disorders of electrolyte and fluid balance, not elsewhere classified; E88.09 Other disorders of plasma-protein metabolism, not elsewhere classified; E66.01 Morbid (severe) obesity due to excess calories; E83.39 Other disorders of phosphorus metabolism; E86.9 Volume depletion, unspecified; E11.65 Type 2 diabetes mellitus with hyperglycemia; N18.9 Chronic kidney disease, unspecified; E11.22 Type 2 diabetes mellitus with diabetic chronic kidney disease; I12.9 Hypertensive chronic kidney disease with stage 1 through stage 4 chronic kidney disease, or unspecified chronic kidney disease; E86.0 Dehydration; Z59.9 Problem related to housing and economic circumstances, unspecified; Z79.82 Long term (current) use of aspirin; Z79.4 Long term (current) use of insulin; Z79.899 Other long term (current) drug therapy; Z90.710 Acquired absence of both cervix and uterus
CPT/HCPCS: 36415; 36600; 51702; 70450; 70450-26; 70496; 70496-26; 70498; 70498-26; 71045; 71045-26; 80048; 80053; 80061; 81001; 82009; 82800; 82803; 82947; 82962; 83036; 83605; 83735; 83930; 84100; 85025; 85610; 85730; 93005; 96360; 96361; 99284; 99285-25; A9270-GY; J1650; J1815-GY; J3475; J3490; J7030; J7050; J7060; J7120; Q9967

== ENCOUNTER → 2020-06-14 | Day surgery (SDC) | payer BC, MEDICAID, OTHER, SELFPAY ==
[~2020-06-14] MED LIST: Ketamine 500 mg/10 ML MDV ONE; Lactated Ringers 1,000 ML IV SCH; Lactated Ringers 1,000 ML ONE; Lidocaine 1% 4 ML ONE; Lidocaine 1%/Sod Bicarbonate in NS 8.4% 1 ML Syringe IDERM PRN; Propofol 200 MG/20 ML SDV ONE; Sodium Chloride 0.9% 10 ML Syringe FLUSH PRN; fentaNYL 100 MCG/2 ML SDV ONE
--- NOTE | 2020-06-14 07:40 | PCM.PREANE ---
Preanesthetic Assessment - Procedure Proposed Procedure: Screening colonoscopy - Anesthesia/Transfusion/Family Hx Anesthesia History: Prior Anesthesia Without Reaction Additional History: Patient states that she takes a long time to come out of anesthesia - Review of Systems General: No Symptoms Pulmonary: No Symptoms Cardiovascular: No Symptoms Gastrointestinal: No Symptoms Neurological: No Symptoms Other: Reports: None - Physical Assessment NPO Status Date: 06/14/20 (greater than 8 hours) Vital Signs: Last Vital Signs Temp 35.9 C L 06/14/20 07:23 Pulse 93 06/14/20 07:23 Resp 18 06/14/20 07:23 BP 143/66 H 06/14/20 07:23 Pulse Ox 96 06/14/20 07:23 Height: 5 ft 7 in Weight: 138.799 kg ASA Class: 3 Mental Status: Alert & Oriented x3 Airway Class: Mallampati = 3 Dentition: Reports: Normal Dentition Thyro-Mental Finger Breadths: 3 (large neck) Mouth Opening Finger Breadths: 3 ROM/Head Extension: Full Lungs: Clear to Auscultation, Normal Respiratory Effort Cardiovascular: Regular Rate, Regular Rhythm - Allergies Allergies/Adverse Reactions: Allergies Allergy/AdvReac Type Severity Reaction Status Date / Time No Known Allergies Allergy Verified 06/14/20 07:21 - Acknowledgements Anesthesia Type Planned: MAC Pt an Appropriate Candidate for the Planned Anesthesia: Yes Alternatives and Risks of Anesthesia Discussed w Pt/Guardian: Yes Pt/Guardian Understands and Agrees with Anesthesia Plan: Yes PreAnesthesia Questionnaire HEENT History: Reports: None Cardiovascular History: Reports: High Cholesterol, Hypertension, Other (See Below) Other Cardiovascular History: venous insufficiency to bilateral legs Respiratory History: Reports: Sleep Apnea Gastrointestinal History: Reports: None Genitourinary History: Reports: UTI, Recurrent, Other (See Below) Other Genitourinary History: yeast infection [employer]OR [employer] History: Other OB/BYN History: hysterectomy, frequent UTI's Musculoskeletal History: Reports: None Neurological History: Reports: CVA (Patient reports history of diabetic related coma/stroke. History unclear. No sequelae.) Psychiatric History: Reports: None Endocrine/Metabolic History: Reports: Diabetes, Type II, Obesity/BMI 30+ Hematologic History: Reports: None Immunologic History: Reports: None Oncologic (Cancer) History: Reports: None Dermatologic History: Reports: None - Infectious Disease History Infectious Disease History: Reports: None - Past Surgical History Head Surgeries/Procedures: Reports: None HEENT Surgical History: Reports: None Cardiovascular Surgical History: Reports: None Respiratory Surgical History: Reports: None GI Surgical History: Reports: None Female Surgical History: Reports: Hysterectomy, Tubal Ligation Male Surgical History: Reports: None Endocrine Surgical History: Reports: None Neurological Surgical History: Reports: None Musculoskeletal Surgical History: Reports: None Oncologic Surgical History: Reports: None Dermatological Surgical History: Reports: None - SUBSTANCE USE Tobacco Use Status *Q: Never Tobacco User Recreational Drug Use History: No - HOME MEDS Home Medications: Home Meds Ascorbic Acid [Vitamin C] 1,000 mg PO DAILY 06/13/20 [History] Aspirin 81 mg PO DAILY 06/13/20 [History] Insulin Glarg,Human.Rec.Analog [Lantus] 20 units SQ DAILY 06/13/20 [History] Irbesartan 300 mg PO DAILY 06/13/20 [History] Liraglutide [Victoza] 1.8 mg SQ DAILY 06/13/20 [History] Multivitamin [Daily Elizabeth] 1 tab PO DAILY 06/13/20 [History] Mupirocin Oint [Bactroban Oint] 1 dose TOP TID 06/13/20 [History] Vit C/E/Zn/Coppr/Lutein/Zeaxan [Preservision Areds 2 Softgel] 1 tab PO DAILY 06/13/20 [History] atorvaSTATin Calcium [Lipitor] 40 mg PO DAILY 06/13/20 [History] metFORMIN HCl [Metformin HCl] 1,000 mg PO BID 06/13/20 [History] - CURRENT (IN HOUSE) MEDS Current Meds: Current Medications Lactated Ringer's (Ringers, Lactated) 1,000 mls @ 125 mls/hr IV ASDIRECTED MICHELE Stop: 06/14/20 23:00 Last Admin: 06/14/20 07:22 Dose: 125 mls/hr Documented by: Lidocaine/Sodium Bicarbonate (Buffered Lidocaine 1% In Ns 8.4%) 0.25 ml IDERM ONETIME PRN PRN Reason: Prior to IV Start Stop: 06/14/20 18:00 Last Admin: 06/14/20 07:22 Dose: 0.25 ml Documented by: Sodium Chloride (Saline Flush) 10 ml FLUSH ASDIRECTED PRN PRN Reason: Keep Vein Open Stop: 06/14/20 18:00 Discontinued Medications Lidocaine HCl (Xylocaine-Mpf 1%) Confirm Administered Dose 4 mls @ as directed .ROUTE .STK-MED ONE Stop: 06/14/20 07:29 Ketamine HCl (Ketalar) Confirm Administered Dose 500 mg .ROUTE .STK-MED ONE Stop: 06/14/20 07:29 Propofol (Diprivan 20 Ml) Confirm Administered Dose 600 mg .ROUTE .STK-MED ONE Stop: 06/14/20 07:29
--- NOTE | 2020-06-14 09:08 | PCM.PRNOTE ---
- Free Text/Narrative Note: Date: 06/14/2020 Procedure: initial screening colonoscopy Endoscopist: Adeel Phillips MD Findings: Cecum reached with colonoscope. Small irregular shaped sessile polyp in cecum. Prep was unsatisfactory. No other polyps identified. Diverticular disease. Detailed Report: The patient was taken to the endoscopy suite and placed in left lateral decubitus position. Time out was performed and monitored anesthesia care was initiated. Visual inspection of the anus revealed no abnormality. Digital rectal exam was unremarkable. The lubricated colonoscope was then inserted and advanced all the way to the cecum. The ileocecal valve and appendiceal orifice were visualized. The prep was unsatisfactory, with a good amount of solid particulate matter that kept clogging the suction channel. One polyp was identified in the cecum, about 1 cm in length; this was biopsied with forceps and fulgurated. No other polyps were identified but prep was poor as described above. Air was suctioned prior to removal of the scope. The patient tolerated the procedure well. Await pathology results and plan on repeat colonoscopy in one year.
--- NOTE | 2020-06-14 09:12 | PCM48HPAN ---
Post Anesthesia Note - EVALUATION WITHIN 48HRS OF ANESTHETIC Vital Signs in Normal Range: Yes Patient Participated in Evaluation: Yes Respiratory Function Stable: Yes Airway Patent: Yes Cardiovascular Function Stable: Yes Hydration Status Stable: Yes Pain Control Satisfactory: Yes Nausea and Vomiting Control Satisfactory: Yes Mental Status Recovered: Yes Vital Signs: Last Vital Signs Temp 36.3 C 06/14/20 08:46 Pulse 88 06/14/20 08:46 Resp 16 06/14/20 08:46 BP 120/83 06/14/20 08:46 Pulse Ox 92 L 06/14/20 08:46 - COMMENTS/OBSERVATIONS Free Text/Narrative:: Patient doing well. Routine recovery. No concerns at this time. Free to go home when nursing care is completed.
== END | disposition home or self-care (01) ==
LOC: JD.SDS 06:45
PROVIDERS: ATTEND Surgery
DX: Z12.11 Encounter for screening for malignant neoplasm of colon (principal); D12.0 Benign neoplasm of cecum; K57.30 Diverticulosis of large intestine without perforation or abscess without bleeding; I10 Essential (primary) hypertension; E78.5 Hyperlipidemia, unspecified; E66.01 Morbid (severe) obesity due to excess calories; E11.9 Type 2 diabetes mellitus without complications; Z79.82 Long term (current) use of aspirin; Z79.899 Other long term (current) drug therapy; Z79.4 Long term (current) use of insulin; Z86.73 Personal history of transient ischemic attack (TIA), and cerebral infarction without residual deficits; Z98.890 Other specified postprocedural states; Z68.42 Body mass index [BMI] 45.0-49.9, adult
CPT/HCPCS: 45380; J2001; J2704; J3010; J7120; 00812

== ENCOUNTER 2022-11-03 07:07 | Day surgery (SDC) | payer MEDICAID ==
[~2022-11-03 07:07] MED LIST changes: +Acetaminophen 325 MG Tab PO SCH; -Ketamine 500 mg/10 ML MDV ONE; -Lactated Ringers 1,000 ML ONE; -Lidocaine 1% 4 ML ONE; -Lidocaine 1%/Sod Bicarbonate in NS 8.4% 1 ML Syringe IDERM PRN; +Pregabalin 25 MG Cap PO SCH; -Propofol 200 MG/20 ML SDV ONE; -Sodium Chloride 0.9% 10 ML Syringe FLUSH PRN; -fentaNYL 100 MCG/2 ML SDV ONE; +oxyCODONE ER 10 MG TAB.ER PO SCH
[2022-11-03] MEDS ORDERED: HYDROmorphone 0.5 MG/0.5 ML Syringe IVPUSH PRN ×2 (07:34→10:27)
[2022-11-03] MEDS ORDERED: fentaNYL 100 MCG/2 ML SDV IVPUSH PRN ×2 (07:34→10:27)
[2022-11-03] MEDS ORDERED: Ondansetron 4 MG/2 ML SDV IVPUSH PRN ×2 (07:34→10:27)
[2022-11-03] MEDS ORDERED: Lidocaine 1% 2 ML ONE (08:37)
[2022-11-03] MEDS ORDERED: fentaNYL 100 MCG/2 ML SDV ONE ×2 (08:37→10:39)
[2022-11-03] MEDS ORDERED: ceFAZolin 2 GM Vial ONE ×2 (08:37→13:22)
[2022-11-03] MEDS ORDERED: Midazolam 1 MG/ML 2 ML SDV ONE (08:38)
[2022-11-03] MEDS ORDERED: Propofol 200 MG/20 ML SDV ONE ×2 (08:38→09:40)
[2022-11-03] MEDS ORDERED: Phenylephrine HCl In 0.9% NaCl 1 MG/10 ML Vial ONE (09:30)
[2022-11-03] MEDS ORDERED: Dexamethasone 4 MG/ML 5 ML MDV ONE (10:13)
[2022-11-03] MEDS: Morphine 8 MG, EPINEPHrine 0.3 MG, Cefuroxime 750 MG, Ketorolac 30 MG, Sodium Chloride ... PRN ×10 (10:25→10:50)
[2022-11-03] MEDS: Tranexamic Acid 1,000 MG/10 ML Vial ONE ×2 (10:25→10:51)
[2022-11-03] MEDS: Vancomycin 1 GM SDV ONE ×2 (10:25→10:51)
[2022-11-03] MEDS ORDERED: Ondansetron 4 MG/2 ML SDV ONE (11:00)
[2022-11-03] MEDS ORDERED: Acetaminophen/HYDROcodone 325-5 MG Tab PO ONE (12:21)
[2022-11-03] MEDS ORDERED: Lactated Ringers 2,000 ML ONE (13:22)
== END 2022-11-03 15:45 | disposition home or self-care (01) ==
LOC: JD.SDS 07:07
PROVIDERS: ATTEND Orthopaedic Surgery
DX: M16.12 Unilateral primary osteoarthritis, left hip (principal); E11.42 Type 2 diabetes mellitus with diabetic polyneuropathy; I10 Essential (primary) hypertension; E66.01 Morbid (severe) obesity due to excess calories; E11.29 Type 2 diabetes mellitus with other diabetic kidney complication; R80.9 Proteinuria, unspecified; G47.33 Obstructive sleep apnea (adult) (pediatric); E78.00 Pure hypercholesterolemia, unspecified; Z79.899 Other long term (current) drug therapy; Z79.84 Long term (current) use of oral hypoglycemic drugs; Z79.82 Long term (current) use of aspirin; Z98.890 Other specified postprocedural states; Z68.42 Body mass index [BMI] 45.0-49.9, adult; Z86.73 Personal history of transient ischemic attack (TIA), and cerebral infarction without residual deficits; Z79.4 Long term (current) use of insulin
CPT/HCPCS: 0055T; 27130; 36415; 73501; 86850; 86900; 86901; 97110; 97116; 97161; A9270; C1713; C1776; J0171; J0690; J0697; J1100; J1885; J2250; J2270; J2405; J2704; J3010; J3370; J7120; 01214; J3490

== ENCOUNTER 2022-11-04 02:10 | Inpatient (IN) | payer MEDICAID ==
[2022-11-04] MEDS ORDERED: HYDROmorphone 1 MG/ML Syringe IVPUSH ONE (02:30)
[2022-11-04] MEDS: Sodium Chloride 0.9% 10 ML Syringe FLUSH PRN (02:59)
[2022-11-04] MEDS ORDERED: HYDROmorphone 0.5 MG/0.5 ML Syringe IVPUSH ONE ×3 (05:01→11:45)
[2022-11-04] MEDS ORDERED: Naloxone 0.4 MG/ML SDV IVPUSH PRN (10:53)
[2022-11-04] MEDS ORDERED: Sennosides 8.6 MG Tab PO PRN (10:53)
[2022-11-04] MEDS ORDERED: Ondansetron 4 MG/2 ML SDV IVPUSH PRN (10:53)
[2022-11-04] MEDS: Cyclobenzaprine 10 MG Tab PO PRN ×2 (13:29→22:25)
[2022-11-04] MEDS: Acetaminophen/HYDROcodone 325-5 MG Tab PO PRN ×2 (15:34→22:26)
[2022-11-04] MEDS: Morphine 2 MG/ML SYRINGE IVPUSH PRN ×4 (15:42→23:13)
[2022-11-04] MEDS: Enoxaparin 40 MG/0.4 ML Syringe SUBCUT SCH (17:17)
[2022-11-04] MEDS: Insulin Lispro 100 Unit/ML 3 ML KwikPen SUBCUT SCH ×2 (17:17→20:23)
[2022-11-04] MEDS: Gabapentin 300 MG Cap PO SCH (20:06)
[2022-11-05] MEDS: Morphine 2 MG/ML SYRINGE IVPUSH PRN ×5 (05:06→23:10)
[2022-11-05] MEDS: Enoxaparin 40 MG/0.4 ML Syringe SUBCUT SCH (05:37)
[2022-11-05] MEDS: Acetaminophen/HYDROcodone 325-5 MG Tab PO PRN ×2 (08:05→20:31)
[2022-11-05] MEDS: Gabapentin 300 MG Cap PO SCH ×2 (08:05→20:31)
[2022-11-05] MEDS: Aspirin 81 MG Tab.Chew PO SCH (08:05)
[2022-11-05] MEDS: Furosemide 20 MG Tab PO SCH (08:06)
[2022-11-05] MEDS: Spironolactone 25 MG Tab PO SCH (08:06)
[2022-11-05] MEDS: atorvaSTATin 40 MG Tab PO SCH (08:06)
[2022-11-05] MEDS: Losartan 100 MG Tab PO SCH (08:06)
[2022-11-05] MEDS: Insulin Lispro 100 Unit/ML 3 ML KwikPen SUBCUT SCH ×4 (08:10→21:11)
[2022-11-05] MEDS: Insulin Glargine,Human Rec. Analog 100 Units/ML 3 ML Pen SUBCUT SCH (08:54)
[2022-11-05] MEDS: Cyclobenzaprine 10 MG Tab PO PRN (18:17)
[2022-11-06] MEDS: Morphine 2 MG/ML SYRINGE IVPUSH PRN (05:12)
[2022-11-06] MEDS: Insulin Lispro 100 Unit/ML 3 ML KwikPen SUBCUT SCH ×4 (08:46→20:09)
[2022-11-06] MEDS: Insulin Glargine,Human Rec. Analog 100 Units/ML 3 ML Pen SUBCUT SCH (08:47)
[2022-11-06] MEDS: Gabapentin 300 MG Cap PO SCH ×2 (08:48→20:15)
[2022-11-06] MEDS: Losartan 100 MG Tab PO SCH (08:48)
[2022-11-06] MEDS ORDERED: Magnesium Sulfate/Water 2 GM in Premix Bag 1 BAG IV ONE (08:53)
[2022-11-06] MEDS ORDERED: Tranexamic Acid 1,000 MG/10 ML Vial IV ONE (09:27)
[2022-11-06] MEDS ORDERED: Tranexamic Acid 1,000 MG/10 ML Vial ONE ×2 (09:33→11:52)
[2022-11-06] MEDS ORDERED: Vancomycin 1 GM SDV ONE (09:33)
[2022-11-06] MEDS ORDERED: Midazolam 1 MG/ML 2 ML SDV ONE (09:36)
[2022-11-06] MEDS ORDERED: fentaNYL 100 MCG/2 ML SDV ONE ×3 (09:36→14:28)
[2022-11-06] MEDS ORDERED: Propofol 200 MG/20 ML SDV ONE (09:36)
[2022-11-06] MEDS ORDERED: Lidocaine 1% 5 ML VIAL ONE (09:38)
[2022-11-06] MEDS ORDERED: Rocuronium 50 MG/5 ML Vial ONE (09:38)
[2022-11-06] MEDS ORDERED: Morphine 8 MG, EPINEPHrine 0.3 MG, Cefuroxime 750 MG, Ketorolac 30 MG, Sodium Chloride ... PRN ×5 (09:46)
[2022-11-06] MEDS: Furosemide 20 MG Tab PO SCH (10:05)
[2022-11-06] MEDS: Spironolactone 25 MG Tab PO SCH (10:05)
[2022-11-06] MEDS: Aspirin 81 MG Tab.Chew PO SCH (10:05)
[2022-11-06] MEDS: atorvaSTATin 40 MG Tab PO SCH (10:06)
[2022-11-06] MEDS ORDERED: ceFAZolin 2 GM Vial ONE (11:23)
[2022-11-06] MEDS ORDERED: Phenylephrine HCl In 0.9% NaCl 1 MG/10 ML Vial ONE (11:31)
[2022-11-06] MEDS ORDERED: Lactated Ringers 1,000 ML ONE (11:31)
[2022-11-06] MEDS ORDERED: Dexamethasone 4 MG/ML 5 ML MDV ONE (11:46)
[2022-11-06] MEDS ORDERED: Ondansetron 4 MG/2 ML SDV IVPUSH PRN ×2 (12:12→15:33)
[2022-11-06] MEDS ORDERED: HYDROmorphone 0.5 MG/0.5 ML Syringe IVPUSH PRN ×2 (12:12→15:33)
[2022-11-06] MEDS ORDERED: fentaNYL 100 MCG/2 ML SDV IVPUSH PRN ×2 (12:12→15:33)
[2022-11-06] MEDS ORDERED: Phenylephrine 1% 10 MG/ML SDV ONE (12:44)
[2022-11-06] MEDS ORDERED: Bupivacaine 0.25% 10 ML SDV ONE (14:16)
[2022-11-06] MEDS ORDERED: HYDROmorphone 0.5 MG/0.5 ML Syringe ONE ×3 (14:18→15:00)
[2022-11-06] MEDS ORDERED: Sugammadex Sodium 200 MG/2 ML VIAL ONE (14:21)
[2022-11-06] MEDS ORDERED: Ondansetron 4 MG/2 ML SDV ONE (14:45)
[2022-11-06] MEDS ORDERED: Ketorolac 15 MG/ML SDV ONE (14:55)
[2022-11-06] MEDS ORDERED: ceFAZolin 1 GM Vial ONE (15:24)
[2022-11-06] MEDS: Cyclobenzaprine 10 MG Tab PO PRN (20:14)
[2022-11-06] MEDS: Sodium Chloride 0.9% 10 ML Syringe FLUSH PRN (20:20)
[2022-11-06] MEDS: Docusate Sodium 100 MG Cap PO PRN (21:05)
[2022-11-06] MEDS: Acetaminophen/HYDROcodone 325-5 MG Tab PO PRN (21:06)
[2022-11-07] MEDS: Acetaminophen/HYDROcodone 325-5 MG Tab PO PRN ×3 (07:22→19:23)
[2022-11-07] MEDS: Insulin Glargine,Human Rec. Analog 100 Units/ML 3 ML Pen SUBCUT SCH (07:37)
[2022-11-07] MEDS: Insulin Lispro 100 Unit/ML 3 ML KwikPen SUBCUT SCH ×3 (07:39→17:32)
[2022-11-07] MEDS: Gabapentin 300 MG Cap PO SCH ×2 (08:00→20:45)
[2022-11-07] MEDS: Aspirin 81 MG Tab.Chew PO SCH (08:00)
[2022-11-07] MEDS: atorvaSTATin 40 MG Tab PO SCH (08:01)
[2022-11-07] MEDS: Losartan 100 MG Tab PO SCH (08:02)
[2022-11-07] MEDS: Furosemide 20 MG Tab PO SCH (08:02)
[2022-11-07] MEDS: Spironolactone 25 MG Tab PO SCH (08:02)
[2022-11-07] MEDS: Cyclobenzaprine 10 MG Tab PO PRN (10:00)
[2022-11-07] MEDS: Apixaban 2.5 MG Tab PO SCH ×2 (13:17→20:45)
[2022-11-07] MEDS: Docusate Sodium 100 MG Cap PO PRN (20:48)
[2022-11-08] MEDS: Insulin Lispro 100 Unit/ML 3 ML KwikPen SUBCUT SCH ×5 (01:05→23:02)
[2022-11-08] MEDS: Acetaminophen/HYDROcodone 325-5 MG Tab PO PRN ×4 (01:06→20:19)
[2022-11-08] MEDS: Cyclobenzaprine 10 MG Tab PO PRN ×3 (01:13→20:17)
[2022-11-08] MEDS: Gabapentin 300 MG Cap PO SCH ×2 (08:43→20:19)
[2022-11-08] MEDS: Apixaban 2.5 MG Tab PO SCH ×2 (08:43→20:19)
[2022-11-08] MEDS: Furosemide 20 MG Tab PO SCH (08:43)
[2022-11-08] MEDS: atorvaSTATin 40 MG Tab PO SCH (08:43)
[2022-11-08] MEDS: Docusate Sodium 100 MG Cap PO PRN ×2 (08:43→20:19)
[2022-11-08] MEDS: Spironolactone 25 MG Tab PO SCH (08:44)
[2022-11-08] MEDS: Losartan 100 MG Tab PO SCH (08:45)
[2022-11-08] MEDS: Insulin Glargine,Human Rec. Analog 100 Units/ML 3 ML Pen SUBCUT SCH (08:45)
[2022-11-08] MEDS: Magnesium Hydroxide 400 MG/5 ML Susp 30 ML Cup PO PRN (08:55)
[2022-11-08] MEDS: Aspirin 81 MG Tab.Chew PO SCH (11:42)
[2022-11-09] MEDS ORDERED: Acetaminophen 325 MG Tab PO PRN (04:52)
[2022-11-09] MEDS: Magnesium Hydroxide 400 MG/5 ML Susp 30 ML Cup PO PRN (05:04)
[2022-11-09] MEDS: Cyclobenzaprine 10 MG Tab PO PRN ×3 (05:04→22:46)
[2022-11-09] MEDS: Acetaminophen/HYDROcodone 325-5 MG Tab PO PRN ×3 (08:08→22:47)
[2022-11-09] MEDS: atorvaSTATin 40 MG Tab PO SCH (09:22)
[2022-11-09] MEDS: Furosemide 20 MG Tab PO SCH (09:22)
[2022-11-09] MEDS: Spironolactone 25 MG Tab PO SCH (09:22)
[2022-11-09] MEDS: Gabapentin 300 MG Cap PO SCH ×2 (09:22→20:16)
[2022-11-09] MEDS: Aspirin 81 MG Tab.Chew PO SCH (09:22)
[2022-11-09] MEDS ORDERED: Metoprolol Tartrate 25 MG Tab PO SCH (09:30)
[2022-11-09] MEDS: Losartan 100 MG Tab PO SCH (09:46)
[2022-11-09] MEDS: Insulin Glargine,Human Rec. Analog 100 Units/ML 3 ML Pen SUBCUT SCH (10:13)
[2022-11-09] MEDS: Insulin Lispro 100 Unit/ML 3 ML KwikPen SUBCUT SCH ×4 (10:17→22:50)
[2022-11-09] MEDS: Apixaban 2.5 MG Tab PO SCH ×2 (10:19→20:16)
[2022-11-09] MEDS: Morphine 2 MG/ML SYRINGE IVPUSH PRN ×2 (18:35→20:12)
[2022-11-09] MEDS ORDERED: Ketorolac 15 MG/ML SDV IVPUSH ONE (20:04)
[2022-11-09] MEDS: Docusate Sodium 100 MG Cap PO PRN (20:16)
[2022-11-10] MEDS: Acetaminophen/HYDROcodone 325-5 MG Tab PO PRN ×5 (05:31→23:28)
[2022-11-10] MEDS: Insulin Lispro 100 Unit/ML 3 ML KwikPen SUBCUT SCH ×4 (07:36→20:06)
[2022-11-10] MEDS: Losartan 100 MG Tab PO SCH (08:45)
[2022-11-10] MEDS: Apixaban 2.5 MG Tab PO SCH ×2 (08:45→20:06)
[2022-11-10] MEDS: Aspirin 81 MG Tab.Chew PO SCH (08:45)
[2022-11-10] MEDS: Gabapentin 300 MG Cap PO SCH ×2 (08:45→20:06)
[2022-11-10] MEDS: atorvaSTATin 40 MG Tab PO SCH (08:46)
[2022-11-10] MEDS: Furosemide 20 MG Tab PO SCH (08:46)
[2022-11-10] MEDS: Cyclobenzaprine 10 MG Tab PO PRN ×2 (08:46→19:33)
[2022-11-10] MEDS: Spironolactone 25 MG Tab PO SCH (08:46)
[2022-11-10] MEDS: Insulin Glargine,Human Rec. Analog 100 Units/ML 3 ML Pen SUBCUT SCH (08:47)
[2022-11-10] MEDS: Docusate Sodium 100 MG Cap PO SCH ×2 (10:46→20:06)
[2022-11-10] MEDS: Magnesium Oxide 400 MG Tab PO SCH (14:46)
[2022-11-11] MEDS: Acetaminophen/HYDROcodone 325-5 MG Tab PO PRN ×3 (03:40→11:36)
[2022-11-11] MEDS: Insulin Lispro 100 Unit/ML 3 ML KwikPen SUBCUT SCH ×2 (07:26→10:56)
[2022-11-11] MEDS: Gabapentin 300 MG Cap PO SCH (08:12)
[2022-11-11] MEDS: Aspirin 81 MG Tab.Chew PO SCH (08:12)
[2022-11-11] MEDS: Apixaban 2.5 MG Tab PO SCH (08:12)
[2022-11-11] MEDS: Magnesium Oxide 400 MG Tab PO SCH (08:12)
[2022-11-11] MEDS: Spironolactone 25 MG Tab PO SCH (08:12)
[2022-11-11] MEDS: Docusate Sodium 100 MG Cap PO SCH (08:12)
[2022-11-11] MEDS: atorvaSTATin 40 MG Tab PO SCH (08:12)
[2022-11-11] MEDS: Furosemide 20 MG Tab PO SCH (08:13)
[2022-11-11] MEDS: Insulin Glargine,Human Rec. Analog 100 Units/ML 3 ML Pen SUBCUT SCH (08:13)
[2022-11-11] MEDS ORDERED: Magnesium Sulfate/Water 2 GM in Premix Bag 1 BAG IV ONE (10:00)
[2022-11-11] MEDS ORDERED: Magnesium Oxide 400 MG Tab PO ONE (10:30)
[2022-11-11] MEDS ORDERED: Magnesium Oxide 400 MG Tab PO SCH (21:00)
== END 2022-11-11 13:34 | DRG 466 ==
LOC: JD.ED 02:10 → JD.MS 10:53 → JD.ICU 11-06 16:19 → JD.MS 11-07 16:59
PROVIDERS: ADMIT Orthopaedic Surgery; ATTEND Orthopaedic Surgery
PROC: 0SRS0JZ Replacement of Left Hip Joint, Femoral Surface with Synthetic Substitute, Open Approach (ICD-10-PCS; principal; 2022-11-06)
PROC: 0SPS0JZ Removal of Synthetic Substitute from Left Hip Joint, Femoral Surface, Open Approach (ICD-10-PCS; 2022-11-06)
PROC: 0QS904Z Reposition Left Femoral Shaft with Internal Fixation Device, Open Approach (ICD-10-PCS; 2022-11-06)
PROC: 30233N1 Transfusion of Nonautologous Red Blood Cells into Peripheral Vein, Percutaneous Approach (ICD-10-PCS; 2022-11-06)
PROC: 8E0ZXY6 Isolation (ICD-10-PCS; 2022-11-10)
DX: M97.02XA Periprosthetic fracture around internal prosthetic left hip joint, initial encounter (principal); U07.1 COVID-19; Z68.42 Body mass index [BMI] 45.0-49.9, adult; N39.0 Urinary tract infection, site not specified; E78.5 Hyperlipidemia, unspecified; E66.01 Morbid (severe) obesity due to excess calories; Z96.642 Presence of left artificial hip joint; G47.33 Obstructive sleep apnea (adult) (pediatric); I87.2 Venous insufficiency (chronic) (peripheral); E11.9 Type 2 diabetes mellitus without complications; I10 Essential (primary) hypertension; E83.42 Hypomagnesemia; K59.00 Constipation, unspecified; Z90.710 Acquired absence of both cervix and uterus; Z87.440 Personal history of urinary (tract) infections; Z86.73 Personal history of transient ischemic attack (TIA), and cerebral infarction without residual deficits; Z79.899 Other long term (current) drug therapy; Z79.82 Long term (current) use of aspirin; Z79.4 Long term (current) use of insulin
CPT/HCPCS: 01215; 36415; 36430; 73502-26-LT; 73502-LT; 73552-26-LT; 73552-LT; 73700-26-LT; 73700-LT; 76000; 76000-26; 80048; 80053; 81001; 82947; 83735; 85025; 85027; 86850; 86900; 86901; 86922; 94761; 96374; 96375; 96376; 97110-GP; 97116-GP; 97162-GP; 97166-GO; 97530-GO; 97530-GP; 99221; 99231; 99232; 99285; 99285-25; A9270-GY; C1713; C1776; J0171; J0690; J0697; J1100; J1170; J1650; J1815; J1815-GY; J1885; J2250; J2270; J2370; J2405; J2704; J3010; J3370; J3475; J3490; J7120; P9016; U0002

== ENCOUNTER 2024-04-19 06:32 | Day surgery (SDC) | payer MEDICARE ==
[~2024-04-19 06:32] MED LIST changes: -Acetaminophen 325 MG Tab PO SCH; -Lactated Ringers 1,000 ML IV SCH; -Pregabalin 25 MG Cap PO SCH; +Sodium Chloride 0.9% 10 ML Syringe FLUSH PRN; +Sodium Chloride 0.9% 10 ML Syringe FLUSH SCH; -oxyCODONE ER 10 MG TAB.ER PO SCH
[2024-04-19] MEDS: Lactated Ringers 1,000 ML IV SCH (07:00)
[2024-04-19] MEDS ORDERED: Propofol 200 MG/20 ML SDV ONE ×2 (07:10→07:53)
[2024-04-19] MEDS ORDERED: Lidocaine 1% 4 ML ONE (07:11)
[2024-04-19] MEDS ORDERED: Lidocaine 1% PF 2 ML SDV ONE ×2 (07:11)
== END 2024-04-19 08:43 | disposition home or self-care (01) ==
LOC: JD.SDS 06:32
PROVIDERS: ATTEND Surgery
DX: Z12.11 Encounter for screening for malignant neoplasm of colon (principal); D12.3 Benign neoplasm of transverse colon; K57.30 Diverticulosis of large intestine without perforation or abscess without bleeding; I11.0 Hypertensive heart disease with heart failure; I50.9 Heart failure, unspecified; E11.9 Type 2 diabetes mellitus without complications; E78.00 Pure hypercholesterolemia, unspecified; E66.01 Morbid (severe) obesity due to excess calories; G47.30 Sleep apnea, unspecified; Z79.82 Long term (current) use of aspirin; Z86.16 Personal history of COVID-19; Z68.43 Body mass index [BMI] 50.0-59.9, adult; Z79.899 Other long term (current) drug therapy; Z79.84 Long term (current) use of oral hypoglycemic drugs; Z79.4 Long term (current) use of insulin
CPT/HCPCS: 00811; 45380; J2704; J3490; J7120

== ENCOUNTER 2024-10-28 08:49 | Emergency (ER) | payer MEDICARE ==
[2024-10-28] MEDS: Sodium Chloride 0.9% 10 ML Syringe FLUSH PRN (09:24)
[2024-10-28 09:37] LABS: BASOPHILS PERCENT AUTO 0.4 % (0.0-1.0); EOSINOPHILS ABSOLUTE AUTO 0.2 K/mm3 (0.0-0.4); HEMATOCRIT 42.3 % (37.0-47.0); HEMOGLOBIN 13.3 gm/dl (12.0-16.0); IMMATURE GRAN ABSOLUTE AUTO 0.06 K/mm3 (0.00-0.05); IMMATURE GRAN PERCENT AUTO 0.8 % (0.0-0.4); LYMPHOCYTES ABSOLUTE AUTO 2.2 K/mm3 (1.0-4.8); LYMPHOCYTES PERCENT AUTO 28.9 % (24.0-44.0); MEAN CORPUSCULAR HEMOGLOBIN 29.2 pg (28.0-32.0); MEAN CORPUSCULAR HGB CONC 31.4 g/dl (32.0-36.0); MEAN PLATELET VOLUME 9.4 fl (9.4-12.3); MONOCYTES ABSOLUTE AUTO 0.6 K/mm3 (0.0-0.8); MONOCYTES PERCENT AUTO 8.2 % (0.0-8.0); NEUTROPHILS ABSOLUTE AUTO 4.5 K/mm3 (1.8-7.7); NEUTROPHILS PERCENT AUTO 59.7 % (41.0-71.0); PLATELET COUNT,PLT 267 K/mm3 (150-400); RED BLOOD CELL COUNT 4.55 M/mm3 (4.10-5.30); WHITE BLOOD CELL COUNT,WBC 7.58 K/mm3 (3.9-11.3)
[2024-10-28 10:03] LABS: ALANINE AMINOTRANSFERASE,ALT 24 U/L (14-59); ALBUMIN 3.6 g/dl (3.4-5.0); ALKALINE PHOSPHATASE 107 U/L (46-116); ANION GAP 10.3 (5-15); ASPARTATE AMNIOTRANSFERASE,AST 13 U/L (15-37); BILIRUBIN TOTAL 0.4 mg/dL (0.2-1.0); BLOOD UREA NITROGEN,BUN 16 mg/dL (7-18); BUN/CREATININE RATIO 22.9 (14-18); CARBON DIOXIDE,CO2 32 mEq/L (21-32); CHLORIDE,CL 103 mEq/L (98-107); CREATININE 0.7 mg/dL (0.55-1.02); ESTIMATED GFR 100 mL/min (>60); GLUCOSE RANDOM 191 mg/dL (70-99); MAGNESIUM 1.5 mg/dL (1.8-2.4); POTASSIUM,K 4.3 mEq/L (3.5-5.1); PROTEIN TOTAL,TP 7.3 g/dl (6.4-8.2); SODIUM,NA 141 mEq/L (136-145); TROPONIN I HIGH SENSITIVITY 7 pg/mL (<=51)
[2024-10-28] MEDS: Magnesium Sulf/Wat 2 GM/50 mL 2 GM in Premix Bag 1 BAG IV ONE (11:48)
[2024-10-28] MEDS: Magnesium Oxide 400 MG Tab PO ONE (11:48)
== END 2024-10-28 14:50 | disposition home or self-care (01) ==
LOC: JD.ED 08:49
DX: M79.602 Pain in left arm (principal); M25.512 Pain in left shoulder; E83.42 Hypomagnesemia; E11.65 Type 2 diabetes mellitus with hyperglycemia; I10 Essential (primary) hypertension; E78.00 Pure hypercholesterolemia, unspecified; E66.9 Obesity, unspecified; Z86.73 Personal history of transient ischemic attack (TIA), and cerebral infarction without residual deficits; Z90.710 Acquired absence of both cervix and uterus; Z79.4 Long term (current) use of insulin; Z79.82 Long term (current) use of aspirin; Z79.84 Long term (current) use of oral hypoglycemic drugs; Z79.899 Other long term (current) drug therapy
CPT/HCPCS: 36415; 71045; 71045-26; 73060-26-LT; 73060-LT; 80053; 83735; 83880; 84484; 85025; 93005; 99284; A9270-GY